=== PATIENT | female | born 1970 ===

== ENCOUNTER 2017-01-06 11:05 | Inpatient (IN) | payer OTHER ==
[~2017-01-06] VITALS: Ht 170.2 cm; Wt 71.4 kg
[~2017-01-06 11:05] MED LIST: CITA40TA4 PO
[2017-01-06 11:23] VITALS: BP 121/82; PULSE 84; RESP 20; TEMP 98.9; O2SAT 100
[2017-01-06] MEDS ORDERED: ALPR0.5T3 PO (11:23)
[2017-01-06 12:05] LABS: BASOPHIL % 0.4 % (0.0-2.0); EOSINOPHIL # 0.1 TH/MM3 (0-0.4); EOSINOPHIL % 1.7 % (0.0-4.0); HEMATOCRIT 38.6 % (35.0-46.0); HEMO FLAGS DIFF FINAL; LYMPH % 24.9 % (9.0-44.0); LYMPHOCYTE # 1.6 TH/MM3 (1.0-4.8); MEAN CELL VOLUME 89.3 FL (80.0-100.0); MEAN CORPUSCULAR HEMOGLOBIN 30.4 PG (27.0-34.0); MONO % 9.4 % (0.0-8.0); NEUT % 63.6 % (16.0-70.0); PLATELET COUNT 207 TH/MM3 (150-450); RED BLOOD COUNT 4.32 MIL/MM3 (4.00-5.30); RED CELL DISTRIBUTION WIDTH 13.6 % (11.6-17.2); WHITE BLOOD COUNT 6.4 TH/MM3 (4.0-11.0)
--- NOTE | 2017-01-06 12:09 | PD ---
HPI Chief Complaint: Psychiatric Symptoms Time Seen by Provider: 12:06 Travel History International Travel<30 days: No Contact w/Intl Traveler<30days: No Traveled to known affect area: No History of Present Illness HPI 46-year-old female that presents to the ED for evaluation of Aceves act. Patient was brought here by police. Per patient she wants to jump from a building or jump from a moving car to kill herself. Per patient she has a chronic history depression and anxiety. The patient she's never been here in this hospital. Per patient she states that she is compliant with her medications but instead final helping. Per patient his been feeling depressed for a couple months. Increasing stressors. Denies any drugs or alcohol. No other medical problems. Symptoms are moderate. Nothing seems to make it better or worse. Denies any allergies to medication. No chest pain or shortness of breath. PFSH Past Medical History Anxiety: Yes Depression: Yes Immunizations Current: Yes Shingles: Yes Influenza Vaccination: No ?: Not Para: 1 Past Surgical History Appendectomy: Yes Section: Yes Other Surgery: Yes (deviated septum, varicose vein sx) Social History Alcohol Use: No Tobacco Use: No Substance Use: No Allergies-Medications (Allergen,Severity, Reaction): Coded Allergies: No Known Allergies (Unverified , 01/06/17) Reported Meds & Prescriptions Reported Meds & Active Scripts Active Citalopram (Citalopram Hydrobromide) 40 Mg Tab 40 Mg PO DAILY Reported Alprazolam 0.5 Mg Tab 0.5 Mg PO BID PRN Review of Systems General / Constitutional: No: Fever, Chills, Weight Gain, Weight Loss, Other Eyes: No: Diploplia, Blurred Vision, Photophobia, Drainage, Redness, Foreign Body Sensation, Pain, Tearing, Blind Spots, Visual changes, Blindness, Other HENT: No: Headaches, Vertigo, Lightheadedness, Sore Throat, Rhinitis, Rhinorrhea, Congestion, Nosebleed, Neck Stiffness, Neck Pain, Masses, Gingival Bleeding, Dental Difficulties, Ear Discharge, Earache, Other Cardiovascular: No: Chest Pain or Discomfort, Palpitations, Irregular Rhythm, Tachycardia, Diaphoresis, Syncope, Dyspnea on exertion, Varicosities, Edema, Cyanosis, Varicosities, Phlebitis, Claudication, Other Respiratory: No: Cough, Shortness of Breath, Wheezing, Sneezing, Orthopnea, Hemoptysis, Stridor, Night Sweats, Pleuritic Pain, Other Gastrointestinal: No: Nausea, Vomiting, Diarrhea, Abdominal Pain, Hematemesis, Hematochezia, Constipation, Changes in Bowel Habits, Indigestion, Dysphagia, Loss of Appetite, Other Genitourinary: No: Urgency, Frequency, Dysuria, Nocturia, Hematuria, Decreased Urinary Output, Oliguria, Hesitancy, Dribbling, Incontinence, Pelvic Pain, Flank Pain, Dyspareunia, Discharge, Dysmenorrhea, Menorrhagia, Metorrhagia, Vaginal Bleeding, Other Musculoskeletal: No: Myalgias, Arthralgias, Limited ROM, Weakness, Cramping, Edema, Pain, Atrophy, Other Skin: No Rash, No Itching, No Dryness, No Lumps, No Hives, No Change in Pigmentation, No Change in nails, No Alopecia, No Lesions, No Breast Lumps, No Breast Tenderness, No Breast Swelling, No Other Neurologic: No: Weakness, Dizziness, Syncope, Focal Abnormalities, Coordination Problem, Tremor, Ataxia, Headache, Change in Mentation, Slurred Speech, Paresthesia, Incontinence, Seizures, Sensory Disturbance, Other Psychiatric: Positive: Anxiety, Depression, Suicidal Ideations, No: Disorder of Thought, Mood Disorder, Substance Abuse, Homicidal Ideation, Other Endocrine: No: Heat Intolerance, Cold Intolerance, Polyuria, Polydipsia, Other Hematologic/Lymphatic: No: Easy Bruising, Lymph Node Enlargement, Other Physical Exam Narrative GENERAL: SKIN: Warm and dry. HEAD: Atraumatic. Normocephalic. EYES: Pupils equal and round. No scleral icterus. No injection or drainage. ENT: No nasal bleeding or discharge. Mucous membranes pink and moist. Tongue is midline. No uvula deviation. NECK: Trachea midline. No JVD. CARDIOVASCULAR: Regular rate and rhythm. No murmurs, S3, S4. RESPIRATORY: No accessory muscle use. Clear to auscultation. Breath sounds equal bilaterally. GASTROINTESTINAL: Abdomen soft, non-tender, nondistended. Hepatic and splenic margins not palpable. MUSCULOSKELETAL: Extremities without clubbing, cyanosis, or edema. No obvious deformities. Full range of motion of the upper and lower extremities bilaterally. 2+ pulses bilaterally. NEUROLOGICAL: Awake and alert. No obvious cranial nerve deficits. Motor grossly within normal limits. Five out of 5 muscle strength in the arms and legs. Normal speech. PSYCHIATRIC: Depressed mood and affect; insight and judgment normal. Data Data Last Documented VS Vital Signs Date Time Temp Pulse Resp B/P Pulse Ox O2 Delivery O2 Flow Rate FiO2 01/06/17 11:23 98.9 84 20 121/82 100 Orders Complete Blood Count With Diff (01/06/17 11:30) Comprehensive Metabolic Panel (01/06/17 11:30) Psych Screen (01/06/17 11:30) Drug Screen, Random Urine (01/06/17 11:30) Alcohol (Ethanol) (01/06/17 11:30) Labs Laboratory Tests Test 01/06/17 01/06/17 11:38 11:40 Urine Opiates Screen NEG Urine Barbiturates Screen NEG Urine Amphetamines Screen NEG Urine Benzodiazepines Screen POS Urine Cocaine Screen NEG Urine Cannabinoids Screen NEG White Blood Count 6.4 TH/MM3 Red Blood Count 4.32 MIL/MM3 Hemoglobin 13.1 GM/DL Hematocrit 38.6 % Mean Corpuscular Volume 89.3 FL Mean Corpuscular Hemoglobin 30.4 PG Mean Corpuscular Hemoglobin 34.0 % Concent Red Cell Distribution Width 13.6 % Platelet Count 207 TH/MM3 Mean Platelet Volume 10.3 FL Neutrophils (%) (Auto) 63.6 % Lymphocytes (%) (Auto) 24.9 % Monocytes (%) (Auto) 9.4 % Eosinophils (%) (Auto) 1.7 % Basophils (%) (Auto) 0.4 % Neutrophils # (Auto) 4.0 TH/MM3 Lymphocytes # (Auto) 1.6 TH/MM3 Monocytes # (Auto) 0.6 TH/MM3 Eosinophils # (Auto) 0.1 TH/MM3 Basophils # (Auto) 0.0 TH/MM3 CBC Comment DIFF FINAL Differential Comment Sodium Level 138 MEQ/L Potassium Level 3.8 MEQ/L Chloride Level 104 MEQ/L Carbon Dioxide Level 25.5 MEQ/L Anion Gap 9 MEQ/L Blood Urea Nitrogen 14 MG/DL Creatinine 0.80 MG/DL Estimat Glomerular Filtration 77 ML/MIN Rate Random Glucose 85 MG/DL Calcium Level 8.6 MG/DL Total Bilirubin 0.3 MG/DL Aspartate Amino Transf 10 U/L (AST/SGOT) Alanine Aminotransferase 16 U/L (ALT/SGPT) Alkaline Phosphatase 53 U/L Total Protein 7.2 GM/DL Albumin 3.8 GM/DL Ethyl Alcohol Level LESS THAN 3 MG/DL MDM Medical Decision Making Medical Screen Exam Complete: Yes Emergency Medical Condition: Yes Medical Record Reviewed: Yes Interpretation(s) CBC & BMP Diagram 01/06/17 11:40 LFTs WNL tox positive for benzos. Differential Diagnosis Depression versus suicidal ideation versus anxiety versus adjustment disorder versus mood disorder versus bipolar disorder versus schizophrenia versus paranoid disorder versus psychosis versus substance abuse versus alcohol abuse versus alcohol induced psychosis versus homicidality addition versus cutting versus personality disorder Narrative Course 46-year-old female that presents to the ED for evaluation of psych. Patient was properly examined and was found to have signs and symptoms consistent with psychiatric illness. No sign of acute medical distress. Patient was medically clear. Labs were drawn. Okay to be seen by psych. Mental health screening was discussed with the patient. Diagnosis Primary Impression: Anxiety and depression Carlos Guevara Jan 06, 2017 12:09
[2017-01-06 12:10] LABS: AMPHETAMINE, URINE NEG (NEG); BARBITURATES, URINE NEG (NEG); COCAINE, URINE NEG (NEG)
[2017-01-06 12:15] LABS: ANION GAP 9 MEQ/L (5-15)
[2017-01-06 12:18] LABS: ALKALINE PHOSPHATASE 53 U/L (45-117); ALT (GPT) 16 U/L (10-53); AST (GOT) 10 U/L (15-37); BICARBONATE 25.5 MEQ/L (21.0-32.0); BLOOD UREA NITROGEN 14 MG/DL (7-18); CHLORIDE 104 MEQ/L (98-107); GLOMERULAR FILTRATION RATE 77 ML/MIN (>89); POTASSIUM 3.8 MEQ/L (3.5-5.1); SODIUM (NA) 138 MEQ/L (136-145); TOTAL BILIRUBIN ADULT 0.3 MG/DL (0.2-1.0)
[2017-01-06 13:00] VITALS: BP 117/77; PULSE 72; RESP 18; TEMP 98.4; O2SAT 98
[2017-01-06] MEDS ORDERED: ALUMINUM/MAGNESIUM/SIMETH 30 ML CUP PO PRN (14:00)
[2017-01-06] MEDS ORDERED: ACETAMINOPHEN 325 MG TAB PO PRN (14:00)
[2017-01-06 14:17] VITALS: BP 117/77
[2017-01-06 15:10] VITALS: BP 102/74; PULSE 72; RESP 18; TEMP 98.1; O2SAT 98
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
[2017-01-06] MEDS: ALPRAZolam 0.5 MG TAB PO SCH (21:35)
[2017-01-07] MEDS ORDERED: MAGNESIUM HYDROXIDE SUSP 30 ML CUP PO PRN (06:00)
[2017-01-07 06:06] VITALS: BP 103/61; PULSE 72; RESP 16; TEMP 97.4; O2SAT 95
[2017-01-07] MEDS: ALPRAZolam 0.5 MG TAB PO SCH ×2 (08:19→21:40)
[2017-01-07] MEDS: CITALOPRAM HYDROBROMIDE 40 MG TAB PO SCH (08:19)
[2017-01-07 19:36] VITALS: BP 96/51; PULSE 78; RESP 16; TEMP 99; O2SAT 98
[2017-01-08 05:48] VITALS: BP 106/62; PULSE 73; RESP 16; TEMP 98
[2017-01-08] MEDS: ALPRAZolam 0.5 MG TAB PO SCH ×2 (09:30→21:10)
[2017-01-08] MEDS: CITALOPRAM HYDROBROMIDE 40 MG TAB PO SCH (09:30)
[2017-01-08] MEDS: TEMAZEPAM 15 MG CAP PO PRN (21:10)
[2017-01-08 21:14] VITALS: BP 103/61; PULSE 70; RESP 16; TEMP 98.1; O2SAT 97
[2017-01-09 05:45] VITALS: BP 98/56; PULSE 75; RESP 18; TEMP 98; O2SAT 98
[2017-01-09] MEDS: ALPRAZolam 0.5 MG TAB PO SCH ×2 (08:52→21:13)
[2017-01-09] MEDS: CITALOPRAM HYDROBROMIDE 40 MG TAB PO SCH (08:52)
[2017-01-09 18:00] VITALS: BP 105/63; PULSE 81; RESP 18; TEMP 98.3; O2SAT 98
[2017-01-09] MEDS: TEMAZEPAM 15 MG CAP PO PRN (21:14)
[2017-01-10 05:26] VITALS: BP 93/51; PULSE 72; RESP 18; TEMP 98.2; O2SAT 99
[2017-01-10] MEDS: CITALOPRAM HYDROBROMIDE 40 MG TAB PO SCH (08:47)
[2017-01-10] MEDS: ALPRAZolam 0.5 MG TAB PO SCH ×2 (08:47→21:37)
[2017-01-10 12:37] VITALS: BP 113/65; PULSE 78; RESP 16
[2017-01-10 18:39] VITALS: BP 112/64; PULSE 77; RESP 18; TEMP 98; O2SAT 100
[2017-01-10] MEDS: TEMAZEPAM 15 MG CAP PO PRN (21:37)
[2017-01-11 05:18] VITALS: BP 111/63; PULSE 81; RESP 18; TEMP 98.2; O2SAT 99
[2017-01-11] MEDS: ALPRAZolam 0.5 MG TAB PO SCH ×2 (08:18→21:55)
[2017-01-11] MEDS: CITALOPRAM HYDROBROMIDE 40 MG TAB PO SCH (08:18)
[2017-01-11 19:22] VITALS: BP 107/73; PULSE 74; RESP 18; TEMP 98.7; O2SAT 99
[2017-01-11] MEDS: TEMAZEPAM 15 MG CAP PO PRN (21:55)
[2017-01-12 06:17] VITALS: BP 108/58; PULSE 77; RESP 18; TEMP 97.8; O2SAT 99
[2017-01-12] MEDS: ALPRAZolam 0.5 MG TAB PO SCH ×2 (08:36→20:31)
[2017-01-12] MEDS: CITALOPRAM HYDROBROMIDE 40 MG TAB PO SCH (08:36)
[2017-01-12 18:24] VITALS: BP 123/57; PULSE 76; RESP 18; TEMP 97.9; O2SAT 99
[2017-01-12] MEDS: TEMAZEPAM 15 MG CAP PO PRN (20:31)
[2017-01-13 06:24] VITALS: BP 90/54; PULSE 76; RESP 17; TEMP 98.6; O2SAT 99
[2017-01-13] MEDS: CITALOPRAM HYDROBROMIDE 40 MG TAB PO SCH (08:19)
[2017-01-13] MEDS: ALPRAZolam 0.5 MG TAB PO SCH (08:19)
[2017-01-13] MEDS ORDERED: ALPR.5 PO (16:56)
[2017-01-13] MEDS ORDERED: CELE40TA PO (16:56)
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
[2017-01-13 18:01] VITALS: BP 119/80; PULSE 71; RESP 17; TEMP 98.2; O2SAT 97
== END 2017-01-13 17:55 | disposition home or self-care (01) | DRG 885 ==
LOC: NEPE 11:05 → NEDA 13:26 → H260 14:13
PROVIDERS: ADMIT Psychiatry & Neurology Psychiatry; ATTEND Psychiatry & Neurology Psychiatry
DX: F33.1 Major depressive disorder, recurrent, moderate (principal); R45.851 Suicidal ideations; F60.3 Borderline personality disorder
CPT/HCPCS: 80053; 80307; 80320; 85025; 99284